=== PATIENT | male | born 1975 | race Two or more races ===

== ENCOUNTER 2017-02-18 15:39 | Emergency (ER) | payer BC ==
[~2017-02-18] VITALS: Ht 182.9 cm; Wt 167.4 kg
[2017-02-18 16:32] VITALS: BP 153/74
== END 2017-02-18 18:01 | disposition home or self-care (01) ==
LOC: ER 15:42
DX: L08.89 Other specified local infections of the skin and subcutaneous tissue (principal); R20.0 Anesthesia of skin; W01.0XXA Fall on same level from slipping, tripping and stumbling without subsequent striking against object, initial encounter; Y92.89 Other specified places as the place of occurrence of the external cause; Y93.89 Activity, other specified; Y99.8 Other external cause status
CPT/HCPCS: 73590-TC; A4606; Z7610